=== PATIENT | male | born 1970 | race Two or more races ===

== ENCOUNTER 2018-02-08 21:59 | Emergency (ER) | payer OTHER ==
[2018-02-08] MEDS ORDERED: ONDANSETRON 4 MG/2 ML VIAL IVP ONE (22:17)
[2018-02-08] MEDS ORDERED: NS 1,000 ML IV ONE (22:17)
--- NOTE | 2018-02-08 22:18 | EDPHY ---
H & P Stated Complaint: VOMIT AND ABD PAIN TODAY, COLD, SWEATING Time Seen by Provider: 02/08/18 22:08 HPI/ROS: Chief Complaint: Abdominal pain, nausea, vomiting HPI: 47-year-old male began having upper abdominal pain this morning followed by multiple episodes of nausea vomiting. Pain is constant but comes in waves. At worst is a 9/10. No blood or coffee-grounds in his vomit. No diarrhea or constipation. No blood in his stool or dark tarry stools. No fevers or chills. No chest pain or shortness of breath. There are no aggravating or alleviating factors. He has not had similar symptoms in the past. No history of abdominal surgeries. ROS: 10 systems were reviewed and were negative except those elements noted in the HPI. PMH: Denies Social History: No smoking, no alcohol, no recreational drug use Family History: non-contributory Physical Exam: Gen: Awake, Alert, No Distress HEENT: Nose: no rhinorrhea Eyes: PERRLA, EOMI Mouth: Moist mucosa Neck: Supple, no JVD Chest: nontender, lungs clear to auscultation Heart: S1, S2 normal, no murmur Abd: Soft, he has tenderness in the epigastrium in the right upper quadrant with positive Wilson sign Back: no CVA tenderness, no midline tenderness Ext: no edema, non-tender Skin: no rash Neuro: CN II-XII intact, Sensation grossly intact, Strength 5/5 in bilateral upper and lower extremities - Personal History Current Tetanus/Diphtheria Vaccine: Yes - Medical/Surgical History Hx Asthma: No Hx Chronic Respiratory Disease: No Hx Diabetes: No Hx Cardiac Disease: No Hx Renal Disease: No Hx Cirrhosis: No Hx Alcoholism: No Hx HIV/AIDS: No Hx Splenectomy or Spleen Trauma: No Other PMH: DENIES - Social History Smoking Status: Never smoked Constitutional: Initial Vital Signs Temperature (C) 36.7 C 02/08/18 22:03 Heart Rate 76 02/08/18 22:03 Respiratory Rate 20 02/08/18 22:03 Blood Pressure 115/77 02/08/18 22:03 O2 Sat (%) 99 02/08/18 22:03 O2 Delivery Mode Room Air Allergies/Adverse Reactions: No Known Allergies Allergy (Unverified 02/08/18 22:37) Home Medications: Medication Instructions Recorded NK [No Known Home Meds] 02/08/18 Medical Decision Making - Diagnostics Imaging Results: Imaging Impressions Abdomen Ultrasound 02/08/18 22:17 Impression: 1. No acute findings. 2. Multiple small gallbladder polyps measuring up to 5 mm, for which no further follow-up is recommended per the [employer]. Findings discussed with Thang Roman MD 02/08/2018 at 23:02. Abdomen CT 02/08/18 23:57 Impression: 1. Fluid throughout the colon with trace free fluid in the abdomen and pelvis, nonspecific findings which can be seen with gastroenteritis. 2. Punctate nonobstructing left renal stone. 3. 3 mm right lower lobe nodule. If the patient is a smoker or is high risk, unenhanced low dose chest CT for follow up in 12 months is considered optional. Otherwise, no further follow up is needed per Fleischner Society criteria. 4. Additional findings as above. Findings discussed with Thang Roman MD 02/09/2018 at 0:21. Imaging: Discussed imaging studies w/ call circuit worker Radiologist ED Course/Re-evaluation: 47-year-old male presenting with right-sided abdominal pain nausea vomiting. He had initially refer quadrant tenderness. Ultrasound is negative for acute cholecystitis or common bile duct obstruction. He has a mild leukocytosis with a left shift. Repeat examination shows a right lower quadrant tenderness. CT scan of the abdomen pelvis was obtained. Patient has some thickening consistent with gastroenteritis. He has a normal appendix. Patient is feeling improved. Will discharge with follow-up as an outpatient. Diagnosis is gastroenteritis. - Data Points Laboratory Results: Laboratory Results 02/08/18 22:30 02/08/18 22:30 02/08/18 02/08/18 02/08/18 23:38 22:30 22:30 WBC 10.92 10^3/uL H 10^3/uL (3.80-9.50) RBC 5.76 10^6/uL 10^6/uL (4.40-6.38) Hgb 17.1 g/dL g/dL (13.7-17.5) Hct 48.9 % % (40.0-51.0) MCV 84.9 fL fL (81.5-99.8) MCH 29.7 pg pg (27.9-34.1) MCHC 35.0 g/dL g/dL (32.4-36.7) RDW 11.7 % % (11.5-15.2) Plt Count 278 10^3/uL 10^3/uL (150-400) MPV 9.4 fL fL (8.7-11.7) Neut % (Auto) 86.3 % H % (39.3-74.2) Lymph % (Auto) 9.8 % L % (15.0-45.0) [place] % (Auto) 3.1 % L % (4.5-13.0) Eos % (Auto) 0.0 % L % (0.6-7.6) Baso % (Auto) 0.4 % % (0.3-1.7) Nucleat RBC Rel Count 0.0 % % (0.0-0.2) Absolute Neuts (auto) 9.43 10^3/uL H 10^3/uL (1.70-6.50) Absolute Lymphs (auto) 1.07 10^3/uL 10^3/uL (1.00-3.00) Absolute Monos (auto) 0.34 10^3/uL 10^3/uL (0.30-0.80) Absolute Eos (auto) 0.00 10^3/uL L 10^3/uL (0.03-0.40) Absolute Basos (auto) 0.04 10^3/uL 10^3/uL (0.02-0.10) Absolute Nucleated RBC 0.00 10^3/uL 10^3/uL (0-0.01) Immature Gran % 0.4 % % (0.0-1.1) Immature Gran # 0.04 10^3/uL 10^3/uL (0.00-0.10) Sodium 136 mEq/L mEq/L (135-145) Potassium 4.0 mEq/L mEq/L (3.3-5.0) Chloride 98 mEq/L mEq/L (97-110) Carbon Dioxide 23 mEq/l mEq/l (22-31) Anion Gap 15 mEq/L H mEq/L (6-14) BUN 20 mg/dL mg/dL (7-23) Creatinine 0.8 mg/dL mg/dL (0.7-1.3) Estimated GFR > 60 Glucose 133 mg/dL H mg/dL (70-100) Calcium 10.9 mg/dL H mg/dL (8.5-10.4) Phosphorus 2.6 mg/dL mg/dL (2.5-4.5) Total Bilirubin 0.9 mg/dL mg/dL (0.1-1.4) AST 30 IU/L IU/L (17-59) ALT 38 IU/L IU/L (21-72) Alkaline Phosphatase 101 IU/L IU/L (38-126) Total Protein 8.7 g/dL H g/dL (6.3-8.2) Albumin 5.0 g/dL g/dL (3.5-5.0) Lipase 139 IU/L IU/L (23-300) Urine Color YELLOW Urine Appearance CLEAR Urine pH 7.0 (5.0-7.5) Ur Specific [place] 1.026 (1.002-1.030) Urine Protein 1+ H (NEGATIVE) Urine Ketones 2+ H (NEGATIVE) Urine Blood NEGATIVE (NEGATIVE) Urine Nitrate NEGATIVE (NEGATIVE) Urine Bilirubin NEGATIVE (NEGATIVE) Urine Urobilinogen NEGATIVE EU EU (0.2-1.0) Ur Leukocyte Esterase NEGATIVE (NEGATIVE) Urine RBC 1-3 /hpf /hpf (0-3) Urine WBC 1-3 /hpf /hpf (0-3) Ur Epithelial Cells NONE SEEN /lpf /lpf (NONE-1+) Urine Mucus 2+ /lpf H /lpf (NONE-1+) Urine Glucose NEGATIVE (NEGATIVE) Medications Given: Discontinued Medications Sodium Chloride (Ns) 1,000 mls @ 0 mls/hr IV ONCE ONE; Wide Open PRN Reason: Protocol Stop: 02/08/18 22:18 Last Admin: 02/08/18 22:25 Dose: 1,000 mls Morphine Sulfate (Morphine) 4 mg IVP ONCE ONE Stop: 02/08/18 22:18 Last Admin: 02/08/18 22:27 Dose: 4 mg Ondansetron HCl (Zofran) 4 mg IVP EDNOW ONE Stop: 02/08/18 22:18 Last Admin: 02/08/18 22:25 Dose: 4 mg Departure - Departure Disposition: Home, Routine, Self-Care Clinical Impression: Acute gastroenteritis Condition: Good Instructions: Gastroenteritis (ED), Ondansetron (By mouth) Additional Instructions: Make sure to drink plenty of clear liquids. You may take ondansetron as needed for nausea vomiting. Follow up with primary care physician in 2-3 days for further evaluation. Return to the emergency department for worsening abdominal pain, uncontrolled nausea vomiting, fevers, or any other concerns. Referrals: Ericka Leon MD [Primary Care Provider] - As per Instructions
[2018-02-08 22:41] LABS: PLATELET COUNT 278 10^3/uL (150-400)
[2018-02-08] MEDS ORDERED: IOPAMIDOL (ISOVUE-300) 100 ML BTL ONE (23:59)
[2018-02-09 00:40] VITALS: BP 118/62
[2018-02-09] MEDS ORDERED: ONDANSETRON 4MG PREPACK#2 BTL TAKEHOME ONE ×2 (00:52→00:53)
== END 2018-02-09 01:00 | disposition home or self-care (01) ==
DX: K52.9 Noninfective gastroenteritis and colitis, unspecified (principal); E86.9 Volume depletion, unspecified
CPT/HCPCS: 96374; J2270; J2405; Q9967